=== PATIENT | female | born 2000 | race Caucasian/White ===

== ENCOUNTER 2021-01-18 12:53 | Inpatient (IN) | payer MEDICAID ==
[~2021-01-18] VITALS: Ht 154.9 cm; Wt 57.3 kg
[2021-01-18 13:14] LABS: CLARITY,URINE CLOUDY (Clear); COLOR,URINE YELLOW (Yellow); GLUCOSE, URINE NEGATIVE (Neg); KETONES,URINE NEGATIVE (Neg); LEUKOCYTE ESTERASE ,URINE NEGATIVE (Neg); NITRITES, URINE NEGATIVE (Neg); OCCULT BLOOD,URINE LARGE (Neg); PROTEIN,URINE 30 mg/dl (Neg)
[2021-01-18 13:16] LABS: UA COLLECTION TYPE CLN CATCH MIDSTREAM
[2021-01-18 13:20] LABS: URINE HCG NEGATIVE (NEG)
[2021-01-18 13:21] LABS: BACTERIA,URINE 1+ /HPF (Neg); MUCUS STRANDS NONE SEEN /LPF (Neg); RBC,URINE TNTC /HPF (0-2); SQUAMOUS EPITHELIAL CELL,UR MODERATE /LPF (FEW); WBC,URINE 0-4 /HPF (0-4)
[2021-01-18] MEDS ORDERED: ketorolac trometh. 30mg/ml inj. IV ONE (14:50)
[2021-01-18] MEDS ORDERED: normal saline 1000ML IV soln IVB ONE (14:50)
[2021-01-18 16:41] LABS: BASOPHILS # (AUTO) 0.1 X10'3 (0-0.2); BASOPHILS % (AUTO) 0.3 % (0-1); EOSINOPHILS # (AUTO) 0.3 X10'3 (0-0.9); EOSINOPHILS % (AUTO) 1.3 % (0-6); HEMATOCRIT 35.7 % (35.0-45.0); HEMOGLOBIN 12.5 g/dl (12.0-16.0); LYMPHOCYTES # (AUTO) 1.3 X10'3 (1.1-4.8); LYMPHOCYTES % (AUTO) 6.2 % (21-51); MEAN CORPUSCULAR HEMOGLOBIN 31.4 PG (27.0-31.0); MEAN CORPUSCULAR HGB CONC 35.2 g/dL (33.0-36.5); MEAN CORPUSCULAR VOLUME 89.4 FL (78-98); MEAN PLATELET VOLUME 8.2 FL (7.4-10.4); MONOCYTES # (AUTO) 1.4 X10'3 (0-0.9); NEUTROPHILS # (AUTO) 17.3 X10'3 (1.8-7.7); NEUTROPHILS % (AUTO) 85.2 % (42-75); PLATELET COUNT 373 X10'3 (140-440); RED BLOOD COUNT 3.99 X10'6 (4.20-5.60); RED CELL DISTRIBUTION WIDTH 13.8 % (11.5-14.5); WHITE BLOOD COUNT 20.3 X10'3 (4.5-11.0)
[2021-01-18 16:45] LABS: ALANINE AMINOTRANSFERASE 13 U/L (12-78); ALBUMIN 3.6 G/DL (3.4-5.0); ALBUMIN/GLOBULIN RATIO 1.2 (1.1-1.5); ALKALINE PHOSPHATASE 75 IU/L (46-116); ANION GAP 11 (8-16); ASPARTATE AMINO TRANSFERASE 15 U/L (10-37); BILIRUBIN,TOTAL 0.4 MG/DL (0.1-1.0); BLOOD UREA NITROGEN 13 MG/DL (7-18); BUN/CREATININE RATIO 15.7 (6.6-38.0); CALCIUM 8.1 MG/DL (8.5-10.1); CHLORIDE 108 MMOL/L (99-107); CREATININE 0.83 MG/DL (0.40-0.90); GLUCOSE 88 MG/DL (70-104); POTASSIUM 3.5 MMOL/L (3.5-5.1); SODIUM 142 MMOL/L (135-145); TOTAL CARBON DIOXIDE 22.6 MMOL/L (24-32); TOTAL PROTEIN 6.7 G/DL (6.4-8.2); eGFR 87 ML/MIN
[2021-01-18] MEDS ORDERED: CefTRIAXone 2gm/D5W 50ml BAG 50 ML IV ONE (17:35)
[2021-01-18] MEDS ORDERED: ESCI20TA39 PO (17:55)
[2021-01-18] MEDS ORDERED: AMPH15TA PO (17:55)
[2021-01-18] MEDS ORDERED: ESCI-8 PO (17:55)
[2021-01-18] MEDS ORDERED: CLON0.1T2 PO (17:55)
[2021-01-18] MEDS ORDERED: LORA-269 PO (17:55)
[2021-01-18] MEDS ORDERED: acetaminophen 325mg tablet PO PRN ×2 (18:05)
[2021-01-18] MEDS ORDERED: magnesium 2GM in 50ml NS 50 ML IV PRN (18:05)
[2021-01-18] MEDS ORDERED: magnesium Cl slow-release 64mg tablet PO PRN (18:05)
[2021-01-18] MEDS ORDERED: magnesium hydroxide 30ml (MOM) UD suspension PO PRN (18:05)
[2021-01-18] MEDS ORDERED: HYDROcodone/acetaminophen 10/325mg tab PO PRN (18:05)
[2021-01-18] MEDS ORDERED: ondansetron/PF 4mg/2ml inj IV PRN (18:05)
[2021-01-18] MEDS ORDERED: morphine 2 MG/ML inj. syringe IV PRN (18:05)
[2021-01-18] MEDS ORDERED: HYDROmorphone inj. 0.5 MG/0.5 ML DISP.SYRIN IV PRN (18:05)
[2021-01-18] MEDS ORDERED: magnesium 4gm in 100ml NS 100 ML IV PRN (18:05)
[2021-01-18] MEDS ORDERED: potassium Cl 20 mEq SR tablet PO PRN ×2 (18:05)
[2021-01-18] MEDS ORDERED: potassium Cl 40MEQ/1/2NS 520ml 520 ML IV PRN ×2 (18:05)
[2021-01-18] MEDS ORDERED: mag hydrox/Alum hydrox/simeth 30ml oral suspension PO PRN (18:05)
--- NOTE | 2021-01-18 18:27 | NUR ---
Dr. Javed at bedside for admission. admission orders now written. Pt is a&ox 4 and pleasant and cooperative. Pts father, Coy, is at bedside [phone] (cell) and is supportive and helpful. Pt with stable vs. Awaiting ipa. Pain 6 to llq and non radiating and Pt is nauseaus. Pt nervous to take any narcotics at this time. Agreeable to antiemetic.
[2021-01-18] MEDS: normal saline 1000ml 1,000 ML IV SCH (18:38)
[2021-01-18] MEDS ORDERED: LORazepam 1 MG tablet PO PRN (19:00)
[2021-01-18] MEDS: morphine 2 MG/ML inj. syringe IV PRN (19:26)
[2021-01-18] MEDS: dextroamphetamine/amphetamine 5mg tablet PO SCH (20:00)
[2021-01-18] MEDS ORDERED: dextroamphetamine/amphetamine 10mg tablet PO SCH (20:00)
[2021-01-18] MEDS: K and/or MAG REPLACEMENT MC SCH (20:00)
[2021-01-18 20:15] VITALS: BP 122/70
--- NOTE | 2021-01-18 20:15 | NUR ---
PATIENT ADMITTED TO ROOM 347B FROM ER FOR URETERAL STONE. PLACED COMFORTABLE IN BED. VITAL SIGNS TAKEN AND RECORDED.
[2021-01-18] MEDS: tamsulosin 0.4mg capsule PO SCH (20:42)
[2021-01-18] MEDS: cloNIDine 0.1 mg tablet PO SCH (20:42)
[2021-01-18] MEDS: heparin, porcine 5000 units/ml vial SQ SCH (20:43)
[2021-01-18] MEDS ORDERED: temazepam 15mg capsule PO PRN (21:00)
[2021-01-19] VITALS (7 sets, daily range): BP systolic 94–220; BP diastolic 45–69
[2021-01-19] MEDS: normal saline 1000ml 1,000 ML IV SCH ×3 (04:38→22:08)
[2021-01-19 05:59] LABS: BASOPHILS # (AUTO) 0.1 X10'3 (0-0.2); BASOPHILS % (AUTO) 0.5 % (0-1); EOSINOPHILS # (AUTO) 0.2 X10'3 (0-0.9); EOSINOPHILS % (AUTO) 1.4 % (0-6); HEMATOCRIT 32.8 % (35.0-45.0); HEMOGLOBIN 11.4 g/dl (12.0-16.0); LYMPHOCYTES # (AUTO) 2.4 X10'3 (1.1-4.8); LYMPHOCYTES % (AUTO) 20.8 % (21-51); MEAN CORPUSCULAR HGB CONC 34.9 g/dL (33.0-36.5); MEAN CORPUSCULAR VOLUME 88.9 FL (78-98); MEAN PLATELET VOLUME 8.4 FL (7.4-10.4); MONOCYTES % (AUTO) 8.6 % (2-12); NEUTROPHILS % (AUTO) 68.7 % (42-75); PLATELET COUNT 338 X10'3 (140-440); RED BLOOD COUNT 3.69 X10'6 (4.20-5.60); RED CELL DISTRIBUTION WIDTH 13.6 % (11.5-14.5); WHITE BLOOD COUNT 11.7 X10'3 (4.5-11.0)
[2021-01-19 06:21] LABS: ALANINE AMINOTRANSFERASE 16 U/L (12-78); ALBUMIN 2.9 G/DL (3.4-5.0); ALBUMIN/GLOBULIN RATIO 0.9 (1.1-1.5); ALKALINE PHOSPHATASE 65 IU/L (46-116); ANION GAP 8 (8-16); ASPARTATE AMINO TRANSFERASE 19 U/L (10-37); BILIRUBIN,TOTAL 0.5 MG/DL (0.1-1.0); BLOOD UREA NITROGEN 11 MG/DL (7-18); BUN/CREATININE RATIO 13.3 (6.6-38.0); CALCIUM 8.2 MG/DL (8.5-10.1); CHLORIDE 109 MMOL/L (99-107); CREATININE 0.83 MG/DL (0.40-0.90); GLUCOSE 82 MG/DL (70-104); MAGNESIUM 1.9 MG/DL (1.5-2.4); POTASSIUM 3.8 MMOL/L (3.5-5.1); SODIUM 139 MMOL/L (135-145); TOTAL CARBON DIOXIDE 21.9 MMOL/L (24-32); eGFR 87 ML/MIN
--- NOTE | 2021-01-19 06:30 | NUR ---
Problems reprioritized. Patient report given, questions answered & plan of care reviewed with AMADO COSME.
[2021-01-19] MEDS: cloNIDine 0.1 mg tablet PO SCH ×2 (08:00→08:44)
[2021-01-19] MEDS: dextroamphetamine/amphetamine 5mg tablet PO SCH ×3 (08:00→19:03)
[2021-01-19] MEDS: K and/or MAG REPLACEMENT MC SCH ×2 (08:00→19:05)
[2021-01-19] MEDS: ESCITALOPRAM OXALATE 5 MG TABLET PO SCH ×2 (08:00→08:44)
[2021-01-19] MEDS: heparin, porcine 5000 units/ml vial SQ SCH ×2 (08:45→20:41)
[2021-01-19] MEDS: CefTRIAXone 2gm/D5W 50ml BAG 50 ML IV SCH (09:04)
[2021-01-19] MEDS ORDERED: ondansetron/PF 4mg/2ml inj IV PRN (11:05)
[2021-01-19] MEDS ORDERED: ringers solution, lacted 1,000 ML IV SCH (11:05)
[2021-01-19] MEDS ORDERED: morphine 2 MG/ML inj. syringe IV PRN (11:05)
[2021-01-19] MEDS ORDERED: morphine 4 MG/ML inj SYRINge IV PRN (11:05)
[2021-01-19] MEDS ORDERED: meperidine/PF 25mg/ml syringe IV PRN ×3 (11:05)
[2021-01-19] MEDS ORDERED: proCHLORperazine 10 MG/2 ml inj IV PRN (11:05)
--- NOTE | 2021-01-19 11:10 | NUR ---
PT. TAKEN OFF FLOOR TO OR.
[2021-01-19] MEDS ORDERED: fentaNYL/PF 50MCG/1 ML 2ML syringe ONE (11:12)
[2021-01-19] MEDS ORDERED: midazolam 1 mg/ML 2ml injection ONE (11:13)
[2021-01-19] MEDS ORDERED: propofol inj 20 ML IV ONE (11:16)
[2021-01-19] MEDS ORDERED: dexamethasone sod phosphate 4mg/ml inj. ONE (11:47)
[2021-01-19] MEDS ORDERED: ondansetron/PF 4mg/2ml inj ONE (11:47)
--- NOTE | 2021-01-19 12:02 | NUR ---
Received from OR via ORTHO BED WITH GAJOSE LUIS , accompanied by Anesthesiologist ANGIE and report given by Anesthesiolgist. PATIENT WITH 20G PIV IN LEFT HAND RUNNING LRA T 100. DENIES ANY DISCOMFORT. Addendum: 01/19/21 at 1219 by Nicolás Alas RN, RN Amended: Links added.
--- NOTE | 2021-01-19 12:42 | NUR ---
ALL DC CRITERIA TO THE FLOOR HAS BEEN MET. IV INTACT. VSS. NO C.O. PAIN. REPORT GIVEN AT BEDSIDE. BED LOW, CALL LIGHT PRESENT AND VS SET UP. RN AWARE PATIENT HAS RETURNED TO ROOM. Addendum: 01/19/21 at 1258 by Nicolás Cronin - BA RN Amended: Links added.
[2021-01-19 12:58] LABS: CLARITY,URINE SLIGHTLY CLOUDY (Clear); COLOR,URINE STRAW (Yellow); GLUCOSE, URINE NEGATIVE (Neg); KETONES,URINE NEGATIVE (Neg); LEUKOCYTE ESTERASE ,URINE NEGATIVE (Neg); NITRITES, URINE NEGATIVE (Neg); OCCULT BLOOD,URINE LARGE (Neg); PROTEIN,URINE NEGATIVE (Neg); UROBILINOGEN,URINE 0.2 E.U/dL (0.2-1.0)
[2021-01-19 13:00] LABS: UA COLLECTION TYPE OTHER
[2021-01-19 13:14] LABS: RBC,URINE 20-50 /HPF (0-2); SQUAMOUS EPITHELIAL CELL,UR FEW /LPF (FEW)
[2021-01-19 13:15] LABS: BACTERIA,URINE NONE SEEN /HPF (Neg); WBC,URINE 0-4 /HPF (0-4)
--- NOTE | 2021-01-19 14:08 | NUR ---
PAGER ID: [phone] MESSAGE: Kandy Gaytan [phone] Can she have some food? [phone]
[2021-01-19] MEDS: HYDROcodone/acetaminophen 5mg/325mg tablet PO PRN ×2 (18:03→22:08)
--- NOTE | 2021-01-19 18:39 | NUR ---
Gave report to Lucille COSME.
[2021-01-19] MEDS: tamsulosin 0.4mg capsule PO SCH (20:42)
[2021-01-19] MEDS ORDERED: sennosides/docusate sodium tablet PO SCH (21:00)
[2021-01-19] MEDS ORDERED: cloNIDine 0.1 mg tablet PO PRN (21:00)
[2021-01-19] MEDS ORDERED: ESCITALOPRAM OXALATE 5 MG TABLET PO SCH (21:00)
[2021-01-20] VITALS: BP 93/51
[2021-01-20] MEDS: morphine 2 MG/ML inj. syringe IV PRN ×2 (01:03→09:15)
[2021-01-20 06:11] LABS: BASOPHILS % (AUTO) 0.1 % (0-1); EOSINOPHILS % (AUTO) 0 % (0-6); HEMATOCRIT 34.8 % (35.0-45.0); LYMPHOCYTES % (AUTO) 9.4 % (21-51); MEAN CORPUSCULAR HEMOGLOBIN 30.6 PG (27.0-31.0); MEAN CORPUSCULAR HGB CONC 34.4 g/dL (33.0-36.5); MEAN CORPUSCULAR VOLUME 89.1 FL (78-98); MEAN PLATELET VOLUME 8.5 FL (7.4-10.4); MONOCYTES # (AUTO) 0.7 X10'3 (0-0.9); NEUTROPHILS # (AUTO) 8.7 X10'3 (1.8-7.7); NEUTROPHILS % (AUTO) 83.5 % (42-75); PLATELET COUNT 355 X10'3 (140-440); RED BLOOD COUNT 3.91 X10'6 (4.20-5.60); RED CELL DISTRIBUTION WIDTH 13.6 % (11.5-14.5); WHITE BLOOD COUNT 10.4 X10'3 (4.5-11.0)
--- NOTE | 2021-01-20 06:33 | NUR ---
Problems reprioritized. Patient report given, questions answered & plan of care reviewed with Mariluz COSME. Addendum: 01/20/21 at 0633 by Lucille Wood RN Amended: Links added.
[2021-01-20 06:41] LABS: ALANINE AMINOTRANSFERASE 10 U/L (12-78); ALBUMIN 3.2 G/DL (3.4-5.0); ALBUMIN/GLOBULIN RATIO 0.9 (1.1-1.5); ALKALINE PHOSPHATASE 65 IU/L (46-116); ANION GAP 10 (8-16); ASPARTATE AMINO TRANSFERASE 14 U/L (10-37); BILIRUBIN,TOTAL 0.2 MG/DL (0.1-1.0); BLOOD UREA NITROGEN 7 MG/DL (7-18); BUN/CREATININE RATIO 11.5 (6.6-38.0); CALCIUM 8.9 MG/DL (8.5-10.1); CHLORIDE 107 MMOL/L (99-107); CREATININE 0.61 MG/DL (0.40-0.90); GLUCOSE 109 MG/DL (70-104); MAGNESIUM 1.8 MG/DL (1.5-2.4); SODIUM 141 MMOL/L (135-145); TOTAL CARBON DIOXIDE 24.3 MMOL/L (24-32); TOTAL PROTEIN 6.6 G/DL (6.4-8.2); eGFR > 90 ML/MIN
--- NOTE | 2021-01-20 06:50 | NUR ---
Patient in room [facility]. I have received report from BA Adkins and had the opportunity to ask questions and assume patient care.
[2021-01-20 07:00] VITALS: BP 123/64
[2021-01-20] MEDS: dextroamphetamine/amphetamine 5mg tablet PO SCH (08:00)
[2021-01-20] MEDS: K and/or MAG REPLACEMENT MC SCH (08:00)
[2021-01-20] MEDS: CefTRIAXone 2gm/D5W 50ml BAG 50 ML IV SCH (09:04)
[2021-01-20] MEDS: normal saline 1000ml 1,000 ML IV SCH (09:05)
[2021-01-20] MEDS: heparin, porcine 5000 units/ml vial SQ SCH (09:05)
[2021-01-20] MEDS ORDERED: SENN-283 PO (09:25)
[2021-01-20] MEDS ORDERED: OMEP20CA15 PO (09:25)
[2021-01-20] MEDS ORDERED: ACET-1008 PO (09:25)
[2021-01-20] MEDS ORDERED: tamsulosin capsule PO (09:25)
[2021-01-20] MEDS ORDERED: IBUP-1985 PO (09:25)
--- NOTE | 2021-01-20 09:33 | NUR ---
Dr Javed in to see patient. Dr. Javed aware patient has not had BM since 01/17 but per patient it is normal for her to not have BM for 3 days. She states, "I have a kind of slow metabolism." Per Dr. Javed patient can take "something at home for it then."
[2021-01-20 11:31] VITALS: BP 107/54
--- NOTE | 2021-01-20 12:00 | NUR ---
Pt stable for discharge. Answered any questions or concerns patients may have regarding discharge paperwork. Medications sent to [facility] on [address] Sent belongings home with pt. PIV removed, cannula intact. PCT sent pt down via wheelchair to personal vehicle.
[2021-01-20] MEDS ORDERED: CIPR-259 PO (14:49)
== END 2021-01-20 12:04 | disposition home or self-care (01) | DRG 465 ==
LOC: ER 12:53 → ED HOLD 18:04 → SUR 3N 20:00
PROVIDERS: ADMIT Internal Medicine; ATTEND Internal Medicine
PROC: 0T778DZ Dilation of Left Ureter with Intraluminal Device, Via Natural or Artificial Opening Endoscopic (ICD-10-PCS; principal; 2021-01-19 11:14)
DX: N20.1 Calculus of ureter (principal); D72.829 Elevated white blood cell count, unspecified; F90.9 Attention-deficit hyperactivity disorder, unspecified type; F41.9 Anxiety disorder, unspecified; F32.9 Major depressive disorder, single episode, unspecified; K59.09 Other constipation; Z79.899 Other long term (current) drug therapy
CPT/HCPCS: 36415; 74176; 76000; 80053; 81001; 81025; 82948; 83735; 84145; 85025; 87081; 87088; 96361; 96365; 96375; 99285; A4618; C1758; C1769; C2617; G0378; J0696; J1100; J1644; J1885; J2250; J2270; J2405; J2704; J3010; J7030